=== PATIENT | female | born 1975 | race Asian ===

== ENCOUNTER 2019-08-01 19:05 | Emergency (ER) | payer MEDICAID ==
[~2019-08-01] VITALS: Ht 167.6 cm; Wt 70.7 kg
[2019-08-01] MEDS ORDERED: BACITRACIN ZINC OINT UDPKT TOP ONE (21:30)
[2019-08-01] MEDS ORDERED: LIDOCAINE HCL/PF 1% 10 MG/ML 5ML VIAL IJ ONE (21:30)
[2019-08-01 22:20] VITALS: BP 120/70
== END 2019-08-01 22:28 | disposition home or self-care (01) ==
LOC: ER 19:05
DX: L02.212 Cutaneous abscess of back [any part, except buttock and flank] (principal)
CPT/HCPCS: 87070; 99283